=== PATIENT | male | born 1995 | race African-American/Black ===

== ENCOUNTER 2022-03-11 21:43 | Emergency (ER) | payer SELFPAY ==
[~2022-03-11] VITALS: Ht 172.7 cm; Wt 84.0 kg
[2022-03-11 21:50] VITALS: BP 118/73
[2022-03-11] MEDS ORDERED: LIDOCAINE HCL/EPINEPHRINE 1%-EPI 1:100,000 20 ML VIAL INFIL ONE (22:30)
[2022-03-11] MEDS ORDERED: TETANUS, DIPHTHERIA, PERTUSSIS VAC/PF 0.5ML (>10YR OLD) IM ONE (22:30)
[2022-03-11] MEDS ORDERED: ACETAMINOPHEN WITH CODEINE 300/30MG TABLET PO ONE (22:30)
[2022-03-11] MEDS ORDERED: BACITRACIN ZINC OINT UDPKT TOP ONE (22:30)
[2022-03-12] MEDS ORDERED: ACETAMINOPHEN 325MG TABLET PO ONE (00:15)
[2022-03-12] MEDS ORDERED: BO1 TP (02:22)
== END 2022-03-12 03:10 | disposition home or self-care (01) ==
LOC: ER 21:43
DX: S31.010A Laceration without foreign body of lower back and pelvis without penetration into retroperitoneum, initial encounter (principal); W01.0XXA Fall on same level from slipping, tripping and stumbling without subsequent striking against object, initial encounter; Y93.89 Activity, other specified; Y92.89 Other specified places as the place of occurrence of the external cause; Y99.8 Other external cause status
CPT/HCPCS: 12004; 70450; 90471; 90715; 99284; J3490; Z7610

== ENCOUNTER → 2022-03-17 | Emergency (ER) | payer MEDICAID ==
[~2022-03-17] VITALS: Ht 172.7 cm; Wt 86.0 kg
[~2022-03-17] MED LIST: BO1 TP; CEPH500C2 MT
[2022-03-17 19:27] VITALS: BP 131/73
== END ==
LOC: ER 19:10
DX: Z48.02 Encounter for removal of sutures (principal)
CPT/HCPCS: 99281

== ENCOUNTER 2022-03-21 08:57 | Emergency (ER) | payer MEDICAID ==
[~2022-03-21] VITALS: Ht 172.7 cm; Wt 87.0 kg
[2022-03-21 09:01] VITALS: BP 109/66
== END 2022-03-21 09:43 | disposition home or self-care (01) ==
LOC: ER 08:57
DX: Z48.02 Encounter for removal of sutures (principal)
CPT/HCPCS: 99281